=== PATIENT | male | born 1980 | race Caucasian/White ===

== ENCOUNTER 2018-09-11 20:48 | Emergency (ER) | payer BC ==
[~2018-09-11] VITALS: Ht 193 cm; Wt 170.4 kg
[2018-09-11 20:54] VITALS: BP 148/82
== END 2018-09-11 23:00 | disposition left against medical advice (07) ==
LOC: M ED 20:48
DX: Z53.21 Procedure and treatment not carried out due to patient leaving prior to being seen by health care provider (principal)

== ENCOUNTER → 2018-09-12 | Outpatient (CLI) | payer BC ==
--- NOTE | 2018-09-13 04:45 | REP ---
Clinical: Trauma. Technique: Frontal view of the chest with multiple views of the left hemithorax. Findings: Frontal view of the chest demonstrates no acute cardiopulmonary process. Multiple views of the left hemithorax demonstrates no obvious acute rib fracture or pathology. Impression: Normal left rib series Electronically Signed by Gus London MD 09/13/2018 04:37 A
== END ==
LOC: M ADAMS 10:32
PROVIDERS: ATTEND Physician Assistant
DX: S20.212A Contusion of left front wall of thorax, initial encounter (principal); Y92.89 Other specified places as the place of occurrence of the external cause; Y93.89 Activity, other specified; X58.XXXA Exposure to other specified factors, initial encounter; Y99.8 Other external cause status

== ENCOUNTER → 2019-02-17 | Outpatient (CLI) | payer BC ==
--- NOTE | 2019-02-17 11:35 | REP ---
Clinical: Cervicalgia Technique: AP, lateral, flexion/extension, bilateral oblique and open mouth views of the cervical spine. Findings: Alignment and lordosis maintained. Vertebral bodies are intact. No acute fracture / compression injury or subluxation. No overt degenerative changes are identified. Open mouth view demonstrates normal C1-C2 articulation and odontoid process. Oblique views demonstrate patent neural foramen. Impression: Essentially age-appropriate cervical spine radiograph series. Electronically Signed by Gus London MD 02/17/2019 11:27 A
== END ==
LOC: M ADAMS 11:08
PROVIDERS: ATTEND Family Medicine
DX: M54.2 Cervicalgia (principal)